=== PATIENT | female | born 1990 | race Caucasian/White ===

== ENCOUNTER → 2016-03-15 | Outpatient (CLI) | payer OTHER ==
[2016-03-15 22:05] LABS: LYME DISEASE AB IGG NEG (NEG); LYME DISEASE AB IGM NEG (NEG)
[2016-03-16 00:39] LABS: RAPID PLASMA REAGIN NONREACTIVE (NONREACT)
--- NOTE | 2016-03-16 11:15 | CODING QUERY NO DIAGNOSIS ---
: 1990 TREATMENT RENDERED WITHOUT A DIAGNOSIS To promote full compliance with coding requirements relating to patient care, physician participation is requested in all cases of pulling unit floorhand uncertainty. Please assist us with providing a diagnosis/symptom for the test(s) below: A diagnosis/symptom was not documented on your Order. A valid diagnosis/symptom is required to bill all insurances. Please remember that we are unable to code a diagnosis of rule out, probable, possible, questionable, or suspected. Tests that require a diagnosis: DOS: 03/15/16 * Angiotensin-1 Converting Enzyme DIAGNOSIS: * CONRADO Screen DIAGNOSIS: * HLA-B27 DIAGNOSIS: * Toxocara Antibody DIAGNOSIS: * Toxoplasma IgG and IgM DIAGNOSIS: * Flourescent Treponemal AB DIAGNOSIS: * Lyme IGG & IGM + WB Confirm DIAGNOSIS: * Rapid Plasma Reagin DIAGNOSIS: * Erythrocyte Sedimentation Rate DIAGNOSIS: Provider Signature: Date: Thank you [facility] Once completed, please kindly fax back to [phone] For questions please call [phone]
[2016-03-21 20:18] LABS: HLA-B27** TC 528X NEGATIVE (NEGATIVE); TOXOCARA ANTIBODY NEGATIVE
== END | disposition home or self-care (01) ==
LOC: C.LABBC 15:28
PROVIDERS: ATTEND Ophthalmology
DX: H43.89 Other disorders of vitreous body (principal); H47.10 Unspecified papilledema